=== PATIENT | female | born 1985 | race African-American/Black ===

== ENCOUNTER 2016-09-25 17:00 | Emergency (ER) | payer BC, SELFPAY ==
[~2016-09-25] VITALS: Ht 167.6 cm; Wt 65.8 kg
[2016-09-25] MEDS ORDERED: YAZ3TAB PO (17:09)
[2016-09-25 17:48] LABS: BASO % 0.5 % (0.0-1.0); EOS # 0.1 K/mm3 (0.0-0.50); EOS % 2.3 % (0.0-3.0); LARGE UNSTAINED CELL # 0.1 K/mm3 (0.0-0.4); LARGE UNSTAINED CELL % 2.2 % (0.0-4.0); LYMPH # 2.5 K/mm3 (1.5-6.5); LYMPH % 43.8 % (24.0-44.0); MEAN CORPUSCULAR HEMOGLOBIN 29.9 pg (27.0-33.0); MEAN CORPUSCULAR HGB CONC 34.4 g/dl (32.0-36.5); MEAN CORPUSCULAR VOLUME 86.9 fl (80.0-96.0); MONO # 0.3 K/mm3 (0.0-0.8); MONO % 4.5 % (0.0-5.0); NEUTROPHILS # 2.7 K/mm3 (1.8-7.7); NEUTROPHILS % 46.7 % (36.0-66.0); PLATELET COUNT, AUTOMATED 280 k/mm3 (150-450); RED CELL DISTRIBUTION WIDTH 12.1 % (11.5-14.5); WHITE BLOOD COUNT 5.7 K/mm3 (4.0-10.0)
[2016-09-25 17:55] LABS: CONTROL LINE HCG INT CTR LINE PRESENT
--- NOTE | 2016-09-25 18:50 | REPUSA ---
Clinical history: Pain. Findings: Real-time transabdominal and transvaginal ultrasound images of the pelvis were obtained. An anteverted uterus is noted, measuring 8.0 x 4.1 x 5.3 cm. The uterus demonstrates numerous hypodens e mass is consistent with fibroids. The largest of these is in the fundus, measuring 2.2 x 2.4 x 2.3 cm. The endometrial stripe measures 6 mm and is within normal limits. The right ovary measures 2.9 x 1.9 x 2.2 cm. The left ovary measures 2.2 x 2.1 x 2.2 cm. No adnexal masses are seen. Color Dopple r flow is seen within both ovaries. There is no evidence of free fluid. Impression: Diffuse leiomyomatous uterus. Ovaries appear unremarkable.
[2016-09-25 19:52] VITALS: BP 140/76
== END 2016-09-25 19:55 | disposition home or self-care (01) ==
LOC: M ED 18:07
DX: D25.1 Intramural leiomyoma of uterus (principal); Z79.3 Long term (current) use of hormonal contraceptives